=== PATIENT | female | born 1930 | race Caucasian/White ===

== ENCOUNTER 2017-09-14 15:26 | Inpatient (IN) | payer MEDICARE ==
[~2017-09-14] VITALS: Ht 170.2 cm; Wt 61.2 kg
[2017-09-14 16:00] VITALS: BP 100/56
--- NOTE | 2017-09-14 16:00 | NUR ---
[id number]: PT IS 87 YEARS OLD FEMALE WITH A HISTORY OF DEMENTIA BROUGHT BY AMBULANCE FROM [facility] FOR AGITATION. PT IS ON 5150 FOR DTO AND GD. PT HAS AGGRESSIVE BEHAVIOR, NON-COMPLAINT, PSYCHOTIC SYMPTOMS. DURING THE BNYP-MJ-AKLS ASSESSMENT, PT IS CONFUSED, DISORGANIZED, DISORIENTED, PT STATED, "I'M TOO OLD TO GET ." PT THINK THAT HER IS TRYING TO KILL HER. WHILE AT THE FACILITY PT CONTINUES TO REFUSE MEDICATIONS, SCREAMING, YELLING, VERY DISRUPTIVE. PT IS AMBULATORY, SELF-CARE, CONTINENT. PROVIDE PT'S RIGHT BOOKLET. BELONGINGS STORED AND DOCUMENTED. FAMILY PRESENT UPON ADMISSION. NOTIFIED DR. ECHEVARRIA AND DR. FELIZ. ESCORTED PT AROUND THE UNIT. PROVIDE PT'S ACTIVITIES SCHEDULE. ALL PAPERWORK AND COMPUTER DOCUMENTATION COMPLETED. WILL ENDORSE TO INCOMING NURSE TO DOUBLE CHECK ALL COMPUTER AND PAPERWORK.
[2017-09-14] MEDS ORDERED: MAGNESIUM HYDROXIDE 30 ML UDC PO PRN (16:30)
[2017-09-14] MEDS ORDERED: MAG HYDROX/AL HYDROX/SIMETH 30 ML UDC PO PRN (16:30)
[2017-09-14 16:39] VITALS: BP 100/56
[2017-09-14] MEDS ORDERED: LISI10TA5 PO (16:55)
[2017-09-14] MEDS ORDERED: RIVA1PAT3 TD (16:55)
[2017-09-14] MEDS ORDERED: TRAZ-147 PO (16:55)
[2017-09-14] MEDS ORDERED: CLON0.5T4 PO (16:55)
[2017-09-14] MEDS ORDERED: RISP0.5T20 PO (16:55)
[2017-09-14] MEDS ORDERED: ESCI5TAB PO (16:55)
[2017-09-14] MEDS ORDERED: PIMA17TA PO (16:55)
[2017-09-14 20:23] VITALS: BP 147/81
--- NOTE | 2017-09-15 02:44 | NUR ---
GPS RN NOTE: PATIENT APPEARED TO BE CONFUSED, DISORGANIZED AND LOOKING FOR HER 2 GRANDDAUGHTERS, PACING AND BACK AND FORTH TO FROM THE ROOM TO THE STATION. OFFERED MEDICATION BUT PATIENT REFUSED, EXPLAINED THE RISK AND BENEFITS X 3 ATTEMPT AND PATIENT STILL REFUSED. REALITY ORIENTATION AND REDIRECTED THE PATIENT. WILL CONTINUE TO MONITOR.
[2017-09-15] MEDS: LISINOPRIL (10MG) 10 MG TABLET PO SCH ×2 (09:00→11:07)
[2017-09-15 11:00] VITALS: BP 164/86
[2017-09-15] MEDS: LORAZEPAM 0.5 MG TABLET PO PRN ×2 (11:07→17:15)
[2017-09-15] MEDS: risperiDONE 0.25 MG TABLET PO SCH ×2 (11:07→17:16)
--- NOTE | 2017-09-15 11:07 | NUR ---
GPS RN NOTE; PT IN THE HALLWAY RESTLESS AND AGITATED ATIVAN 0.5 MG PO PRN GIVEN PER ORDER, PT REFUSED VSS LATER AGREED TO TAKE IT BP MEDS GIVEN WILL CONTINUE MONITORING
[2017-09-15 16:00] VITALS: BP 117/62
--- NOTE | 2017-09-15 18:18 | NUR ---
GPS RN NOTE; PT RESTLESS ATIVAN 0.5 MG PO PRN GIVE PER ORDER WILL CONTINUE MONITORING
--- NOTE | 2017-09-15 19:30 | NUR ---
RN NOTES RECEIVED PATIENT SITTING IN BED. AO X 1, ABLE TO MAKE NEEDS KNOW. PATIENT VERY CONFUSED; EASILY AGITATED; UNCOOPERATIVE. SAFETY REMINDERS GIVEN. PATIENT WITH POOR SAFETY AWARENESS. SITTER AT BEDSIDE. ON LOW BED WITH BILATERAL UPPER SIDE RAILS UP. CALL KENNY WITHIN EASY REACH. WILL CONTINUE TO MONITOR.
[2017-09-15 19:36] VITALS: BP 147/70
[2017-09-15 20:00] VITALS: BP 147/70
[2017-09-15] MEDS: BENZTROPINE MESYLATE (1 MG) 1 MG TABLET PO SCH (20:56)
[2017-09-15] MEDS: TEMAZEPAM 7.5 MG CAPSULE PO PRN (21:23)
[2017-09-15 21:44] LABS: ALANINE AMINOTRANSFERASE 22 U/L (12-78); ALBUMIN 3.6 g/dL (3.4-5.0); ALKALINE PHOSPHATASE 85 U/L (46-116); ASPARTATE AMINOTRANSFERASE 25 U/L (15-37); BILIRUBIN,TOTAL 0.5 mg/dL (0.2-1.0); CALCIUM, SERUM 9.3 mg/dL (8.5-10.1); CARBON DIOXIDE 24 mmol/L (21-32); CHLORIDE 104 mmol/L (98-107); CREATININE 0.8 mg/dL (0.6-1.3); GLUCOSE 96 mg/dL (74-106); POTASSIUM 3.9 mmol/L (3.5-5.1); SODIUM SERUM 139 mmol/L (136-145); UREA NITROGEN, BLOOD 14 mg/dL (7-18)
[2017-09-15 21:59] LABS: CHOLESTEROL 179 mg/dL (<200); HDL CHOLESTEROL 86 mg/dL (40-60); LDL 78 mg/dL (0-99); TRIGLYCERIDES 48 mg/dL (30-150)
[2017-09-16] MEDS: LORAZEPAM 0.5 MG TABLET PO PRN (00:28)
--- NOTE | 2017-09-16 06:00 | NUR ---
RN NOTES PATIENT ASLEEP, EASILY AROUSABLE. RESPIRATIONS EVEN. NO SIGNS OF PAIN NOTED. DUE MEDS GIVEN WITH NO ASE NOTED. NEEDS ATTENDED. KEPT CLEAN AND DRY. SAFETY PRECAUTIONS AND COMFORT MEASURES IN PLACE. WILL GIVE REPORT TO DAY SHIFT FOR CONTINUITY OF CARE.
[2017-09-16 08:00] VITALS: BP 107/70
[2017-09-16] MEDS: LISINOPRIL (10MG) 10 MG TABLET PO SCH (09:00)
[2017-09-16] MEDS: risperiDONE 0.25 MG TABLET PO SCH (09:18)
--- NOTE | 2017-09-16 11:48 | NUR ---
WOUND CARE CONSULT: PT REFUSED SKIN ASSESSMENT. PT SEEN BY PODIATRY FOR FEET. DEFER TO DPM. WILL SEE PRN. DISCUSSED SKIN PROTECTION WITH NURSING STAFF. PT IS AMBULATORY AND CONTINENT.
[2017-09-16 16:00] VITALS: BP 125/65
--- NOTE | 2017-09-16 16:01 | NUR ---
Initial Discharge Note: Patient resides in memory care unit in assisted living [facility], [place] at [facility], [address] [place] [address] / [phone]. ANAIS spoke with patient's daughter/GRACIA Garcia [phone]. Phoebe stated that she would like her mother to return there once stable. Phoebe informed SW that patient had been at memory care unit for only one day before she began to refuse food and drink. ANAIS called the facility and left a voicemail for business directMarzia. ANAIS also left a message with law office receptionist Mayelin. ANAIS provided her direct contact information. SW to follow up with MD and facilitate safe and proper discharge.
[2017-09-16] MEDS: risperiDONE 1 MG TABLET PO SCH (20:39)
[2017-09-16] MEDS: BENZTROPINE MESYLATE (1 MG) 1 MG TABLET PO SCH (20:40)
[2017-09-16 20:50] VITALS: BP 126/75
[2017-09-16] MEDS: TEMAZEPAM 7.5 MG CAPSULE PO PRN (21:26)
--- NOTE | 2017-09-16 22:26 | NUR ---
GPS RN NOTES: PATIENT UNABLE TO SLEEP. VITAL SIGNS ARE STABLE. RESTORIL 7.5MG PO GIVEN PRN ORDER, WILL CONTINUE TO MONITOR.
[2017-09-17] MEDS: LORAZEPAM 0.5 MG TABLET PO PRN (00:49)
--- NOTE | 2017-09-17 00:49 | NUR ---
GPS RN NOTES: PATIENT IS ANXIOUS AND RESTLESS, VITAL SIGNS ARE STABLE. ATIVAN 0.5MG PO GIVEN PRN ORDER WILL CONTINUE TO MONITOR [id number] FOR SAFETY AND BEHAVIOR.
[2017-09-17 08:00] VITALS: BP 121/58
[2017-09-17] MEDS ORDERED: risperiDONE 0.25 MG TABLET PO SCH (08:00)
--- NOTE | 2017-09-17 08:38 | NUR ---
GPS RN NOTE: PT REFUSED LISINOPRIL 10 MG PO DAILY OFFERED X3 PT CONTINUE REFUSING VSS VNL WILL CONTINUE MONITORING
[2017-09-17] MEDS: busPIRone 5 MG TABLET PO SCH ×2 (13:13→16:29)
[2017-09-17] MEDS: risperiDONE 0.25 MG TABLET PO SCH (13:13)
[2017-09-17] MEDS: RIVASTIGMINE TARTRATE 4.6 MG PATCH.TD24 TD SCH (13:24)
--- NOTE | 2017-09-17 14:44 | NUR ---
Discharger Planning: ANAIS called and spoke with wildlife protector Santiago at [facility], [address] [place] [address] / [phone]. ANAIS was informed that the nurse [who will have information regarding patient's ability to return] is out of the office and asked SW to call at 11am tomorrow morning. SW to follow up.
[2017-09-17 16:37] LABS: APPEARANCE,URINE SL CLOUDY (CLEAR); BILIRUBIN,URINE NEGATIVE (NEGATIVE); BLOOD, URINE NEGATIVE Ery/uL (NEGATIVE); COLOR,URINE YELLOW (YELLOW); KETONES,URINE NEGATIVE (NEGATIVE); LEUKOCYTE ESTERASE ,URINE 3+ (NEGATIVE); NITRITE, URINE POSITIVE (NEGATIVE); PH,URINE 6.5 (5.0-8.0); PROTEIN,URINE NEGATIVE (NEGATIVE); UGLUCOSE NEGATIVE (NEGATIVE); UROBILINOGEN,URINE 0.2 EU/dL (0.2)
[2017-09-17 16:43] LABS: BACTERIA,URINE Many /HPF (None Seen); RBC,URINE 0-2 /HPF (0-2); SQUAMOUS EPITHELIAL CELL,UR Few /HPF (None Seen); WBC,URINE 51-80 /HPF (0-3)
[2017-09-17 17:10] VITALS: BP 130/73
[2017-09-17] MEDS: BENZTROPINE MESYLATE (1 MG) 1 MG TABLET PO SCH (20:22)
[2017-09-17] MEDS: CEPHALEXIN MONOHYDRATE 500 MG CAPSULE PO SCH (20:22)
[2017-09-17] MEDS: risperiDONE 1 MG TABLET PO SCH (20:22)
[2017-09-17 21:11] VITALS: BP 156/84
[2017-09-17] MEDS: TEMAZEPAM 7.5 MG CAPSULE PO PRN (21:35)
[2017-09-18] MEDS: LORAZEPAM 0.5 MG TABLET PO PRN ×2 (01:18→13:09)
--- NOTE | 2017-09-18 01:18 | NUR ---
GPS RN NOTES: PATIENT VERY ANXIOUS, RESTLESS, SCREAMING AND YELLING. V/S ARE STABLE. ADMINISTERED ATIVAN 0.5MG PO ORDERED. WILL CONTINUE TO MONITOR [id number] FOR SAFETY AND BEHAVIOR.
[2017-09-18] MEDS: ACETAMINOPHEN 325 MG TABLET PO PRN (01:52)
[2017-09-18 07:13] LABS: BASOPHILS % (AUTO) 0.4 % (0.0-2.0); EOSINOPHILS # (AUTO) 0.1 /CMM (0.0-0.7); EOSINOPHILS % (AUTO) 1.6 % (0.0-6.0); HEMATOCRIT 39 % (33-45); LYMPHOCYTES # (AUTO) 1.4 /CMM (0.8-4.8); LYMPHOCYTES % (AUTO) 19.9 % (20.0-44.0); MEAN CORPUSCULAR HEMOGLOBIN 30 PG (26.0-33.0); MEAN CORPUSCULAR HGB CONC 33 g/dl (31.0-36.0); MEAN CORPUSCULAR VOLUME 91 fL (82-100); MONOCYTES # (AUTO) 0.9 /CMM (0.1-1.30); MONOCYTES % (AUTO) 11.8 % (2.0-12.0); NEUTROPHILS # (AUTO) 4.8 /CMM (1.8-8.9); NEUTROPHILS % (AUTO) 66.3 % (43.0-81.0); PLATELET COUNT (AUTO) 316 /CMM (150-450); RDW COEFFICIENT OF VARIATION 14.8 (11.5-15.0); RED BLOOD CELL COUNT(AUTO) 4.33 MIL/uL (4.0-5.2); WHITE BLOOD COUNT (AUTO) 7.3 K/uL (4.3-11.0)
[2017-09-18 08:00] VITALS: BP 125/59
[2017-09-18] MEDS: RIVASTIGMINE TARTRATE 4.6 MG PATCH.TD24 TD SCH (08:20)
[2017-09-18] MEDS: CEPHALEXIN MONOHYDRATE 500 MG CAPSULE PO SCH ×2 (08:20→20:38)
[2017-09-18] MEDS: busPIRone 5 MG TABLET PO SCH ×2 (08:20→12:36)
[2017-09-18] MEDS: risperiDONE 0.25 MG TABLET PO SCH ×2 (08:20→12:36)
[2017-09-18] MEDS: LISINOPRIL (10MG) 10 MG TABLET PO SCH (08:21)
[2017-09-18] MEDS: MEMANTINE HCL 5 MG TABLET PO SCH (09:43)
--- NOTE | 2017-09-18 11:42 | NUR ---
Discharge Planning: ANAIS spoke with nurse Ling, regarding patient's ability to return to memory care unit at [facility]. ANAIS was informed that patient is able to return, but a face to face assessment needs to be conducted first. SW to schedule assessment once patient is stable and ready for discharge. Addendum: 09/19/17 at 1123 by BRITTANY MANZO PLEASE NOTE LING IS MEMORY CARE CARPET INSTALLATION SPECIALIST
--- NOTE | 2017-09-18 13:10 | NUR ---
GPS/RN PATIENT NOTED WITH ACUTE AGITATION, YELLING, STRIKING OUT AT STAFF, NOT ABLE TO REDIRECT AT THIS TIME, [id number] ATIVAN 0.5 MG, WILL CONTINUE TO MONITOR.
[2017-09-18 16:13] VITALS: BP 114/65
[2017-09-18] MEDS: GABAPENTIN 100 MG CAPSULE PO SCH (16:52)
[2017-09-18 20:00] VITALS: BP 147/70
[2017-09-18] MEDS: BENZTROPINE MESYLATE (1 MG) 1 MG TABLET PO SCH (20:38)
[2017-09-18] MEDS: risperiDONE 1 MG TABLET PO SCH (20:38)
[2017-09-18] MEDS: TEMAZEPAM 7.5 MG CAPSULE PO PRN (20:38)
[2017-09-18] MEDS ORDERED: LORAZEPAM 0.5 MG TABLET PO PRN (22:30)
[2017-09-19 08:00] VITALS: BP 121/67
[2017-09-19] MEDS: risperiDONE 0.25 MG TABLET PO SCH ×3 (08:02→17:42)
[2017-09-19] MEDS: LISINOPRIL (10MG) 10 MG TABLET PO SCH (08:02)
[2017-09-19] MEDS: GABAPENTIN 100 MG CAPSULE PO SCH (08:02)
[2017-09-19] MEDS: MEMANTINE HCL 5 MG TABLET PO SCH (08:02)
[2017-09-19] MEDS: CEPHALEXIN MONOHYDRATE 500 MG CAPSULE PO SCH ×2 (08:02→21:08)
[2017-09-19] MEDS: RIVASTIGMINE TARTRATE 4.6 MG PATCH.TD24 TD SCH (08:02)
--- NOTE | 2017-09-19 11:22 | NUR ---
Discharge Planning: ANAIS left a voicemail for memory care director of community services Ling, . ANAIS provided her direct contact information in the voicemail. ANAIS asked Ling to assess patient on Friday.
[2017-09-19] MEDS: GABAPENTIN 300 MG CAPSULE PO SCH ×2 (12:26→17:42)
[2017-09-19] MEDS: LORAZEPAM 0.5 MG TABLET PO SCH ×2 (12:26→17:42)
[2017-09-19 16:00] VITALS: BP 149/70
[2017-09-19 20:00] VITALS: BP 105/60
[2017-09-19] MEDS: BENZTROPINE MESYLATE (1 MG) 1 MG TABLET PO SCH (21:09)
[2017-09-20 08:00] VITALS: BP 101/58
[2017-09-20] MEDS: LORAZEPAM 0.5 MG TABLET PO SCH ×4 (09:00→17:18)
[2017-09-20] MEDS: MEMANTINE HCL 5 MG TABLET PO SCH (09:02)
[2017-09-20] MEDS: CEPHALEXIN MONOHYDRATE 500 MG CAPSULE PO SCH ×2 (09:02→20:11)
[2017-09-20] MEDS: GABAPENTIN 300 MG CAPSULE PO SCH ×3 (09:02→17:18)
[2017-09-20] MEDS: risperiDONE 0.25 MG TABLET PO SCH ×3 (09:02→17:18)
[2017-09-20] MEDS: RIVASTIGMINE TARTRATE 4.6 MG PATCH.TD24 TD SCH (09:03)
[2017-09-20] MEDS: LISINOPRIL (10MG) 10 MG TABLET PO SCH (09:03)
[2017-09-20 16:00] VITALS: BP 92/50
[2017-09-20] MEDS: BENZTROPINE MESYLATE (1 MG) 1 MG TABLET PO SCH (19:49)
[2017-09-20 20:00] VITALS: BP 110/60
[2017-09-20] MEDS: TEMAZEPAM 7.5 MG CAPSULE PO PRN (23:50)
[2017-09-20] MEDS: ACETAMINOPHEN 325 MG TABLET PO PRN (23:51)
[2017-09-21 08:00] VITALS: BP 100/58
[2017-09-21] MEDS: GABAPENTIN 300 MG CAPSULE PO SCH ×3 (08:30→17:04)
[2017-09-21] MEDS: MEMANTINE HCL 5 MG TABLET PO SCH (08:30)
[2017-09-21] MEDS: CEPHALEXIN MONOHYDRATE 500 MG CAPSULE PO SCH ×2 (08:30→21:12)
[2017-09-21] MEDS: RIVASTIGMINE TARTRATE 4.6 MG PATCH.TD24 TD SCH (08:30)
[2017-09-21] MEDS: LORAZEPAM 0.5 MG TABLET PO SCH ×3 (08:31→17:04)
[2017-09-21] MEDS: LISINOPRIL (10MG) 10 MG TABLET PO SCH (08:31)
[2017-09-21] MEDS: risperiDONE 0.25 MG TABLET PO SCH ×3 (08:31→17:04)
[2017-09-21 16:00] VITALS: BP 110/76
[2017-09-21 19:52] VITALS: BP 140/77
[2017-09-21] MEDS: BENZTROPINE MESYLATE (1 MG) 1 MG TABLET PO SCH (19:52)
[2017-09-21] MEDS: TEMAZEPAM 7.5 MG CAPSULE PO PRN (21:25)
[2017-09-21] MEDS: ACETAMINOPHEN 325 MG TABLET PO PRN (22:32)
[2017-09-22] MEDS: LORAZEPAM 0.5 MG TABLET PO PRN ×2 (00:06→08:19)
--- NOTE | 2017-09-22 00:06 | NUR ---
GPS RN NOTES: PATIENT VERY ANXIOUS, RESTLESS. V/S ARE STABLE. ADMINISTERED ATIVAN 0.5MG PO ORDERED. WILL CONTINUE TO MONITOR [id number] FOR SAFETY AND BEHAVIOR.
[2017-09-22] MEDS: GABAPENTIN 300 MG CAPSULE PO SCH ×3 (08:18→17:00)
[2017-09-22] MEDS: CEPHALEXIN MONOHYDRATE 500 MG CAPSULE PO SCH ×2 (08:18→21:45)
[2017-09-22] MEDS: RIVASTIGMINE TARTRATE 4.6 MG PATCH.TD24 TD SCH (08:19)
[2017-09-22] MEDS: MEMANTINE HCL 5 MG TABLET PO SCH (08:19)
[2017-09-22] MEDS: risperiDONE 0.25 MG TABLET PO SCH ×2 (08:19→12:33)
[2017-09-22] MEDS: LISINOPRIL (10MG) 10 MG TABLET PO SCH (08:19)
--- NOTE | 2017-09-22 08:19 | NUR ---
GPS/RN PATIENT NOTED WITH ACUTE AGITATION, ANXIOUS, SCREAMING, NOT ABLE TO REDIRECT AT THIS TIME, ADMINISTERED ATIVAN 0.5 MG, WILL CONTINUE TO MONITOR.
[2017-09-22] MEDS: Z GUARD REMEDY 4 OZ OINT TP SCH ×2 (09:00→21:45)
[2017-09-22] MEDS: LORAZEPAM 0.5 MG TABLET PO SCH ×2 (09:32→12:34)
--- NOTE | 2017-09-22 11:08 | NUR ---
Discharge Planning: SW spoke with patient's daughter/POA Phoebe Garcia [phone]. Phoebe stated that she would like to speak with the patient's psychiatrist and ANAIS stated that she will inform the psychiatrist of the request. Phoebe stated that, if necessary, a SNF placement will be okay for the patient. Phoebe stated that she does not wish to make any decisions without speaking with the psychiatrist, as she wants her decisions to be well-informed. Phoebe also asked ANAIS to ask Ling, nurse at memory care unit, if crushing pills into food was something that the facility was okay with doing. SW to follow up.
--- NOTE | 2017-09-22 13:27 | NUR ---
GPS/RN SPOKE WITH YASMEEN IN PHARMACY REGARDING THE INACCURATE WASTE AMOUNT (ATIVAN 0.75 MG) IN OMNICELL. HE STATED TO DOCUMENT THE ACCURATE AMOUNT GIVEN AND WASTED - 0.25 GIVEN AND 0.25 WASTED OF ATIVAN 0.5 MG TABLET. WITNESSED BY 2ND RN.
[2017-09-22 16:00] VITALS: BP 118/90
[2017-09-22] MEDS: QUETIAPINE FUMARATE 25 MG TABLET PO SCH (17:00)
--- NOTE | 2017-09-22 17:50 | NUR ---
GPS/RN PATIENT IS AROUSABLE TO TOUCH AND NAME BUT APPEARS TO BE SOMEWHAT SEDATED, HELD 1700 GABAPENTIN 300 MG AND SEROQUEL 12.5 MG, WILL CONTINUE TO MONITOR.
[2017-09-22 19:57] VITALS: BP 111/56
[2017-09-23 08:00] VITALS: BP 102/52
[2017-09-23] MEDS: LISINOPRIL (10MG) 10 MG TABLET PO SCH (09:00)
[2017-09-23] MEDS: QUETIAPINE FUMARATE 25 MG TABLET PO SCH ×3 (09:53→17:31)
[2017-09-23] MEDS: CEPHALEXIN MONOHYDRATE 500 MG CAPSULE PO SCH ×2 (09:53→20:37)
[2017-09-23] MEDS: MEMANTINE HCL 5 MG TABLET PO SCH (09:53)
[2017-09-23] MEDS: RIVASTIGMINE TARTRATE 4.6 MG PATCH.TD24 TD SCH (09:53)
[2017-09-23] MEDS: GABAPENTIN 300 MG CAPSULE PO SCH ×3 (09:53→17:31)
[2017-09-23] MEDS: Z GUARD REMEDY 4 OZ OINT TP SCH ×2 (10:07→20:45)
--- NOTE | 2017-09-23 10:14 | NUR ---
Discharge Planning: ANAIS consulted with patient's psychiatric, who informed ANAIS that patient was not yet ready to be assessed by assisted living facility. ANAIS called and spoke with nurse / coordinator or memory care unit at assisted living facility Ling [phone]. ANAIS inquired if facility is okay with crushing medication into food. Ling stated that, as long as there is an order from the hospital, then yes. Sivan asked ANAIS to keep her updated so that she is able to assess patient as soon as possible. Ling asked ANAIS to fax updated notes and medication list to fax number [phone] or fax # [phone] Addendum: 09/24/17 at 1146 by BRITTANY MANZO ANAIS faxed progress notes and medication list to Ling, fax # [phone]
[2017-09-23 16:00] VITALS: BP 104/71
[2017-09-23] MEDS: QUETIAPINE FUMARATE 25 MG TABLET PO PRN (18:41)
--- NOTE | 2017-09-23 18:42 | NUR ---
GPS/RN PATIENT IS EXTREMELY AGITATED, IRRITABLE, ANXIOUS, SCREAMING INTERMITTENTLY, , ADMINISTERED SEROQUEL PRN PER DR FELIZ. WILL CONTINUE TO MONITOR.
[2017-09-23 20:58] VITALS: BP 133/67
[2017-09-23] MEDS: TEMAZEPAM 7.5 MG CAPSULE PO PRN (22:41)
[2017-09-23] MEDS: ACETAMINOPHEN 325 MG TABLET PO PRN (23:36)
[2017-09-24] MEDS: QUETIAPINE FUMARATE 25 MG TABLET PO PRN ×2 (00:57→11:31)
--- NOTE | 2017-09-24 00:57 | NUR ---
GPS/RN PATIENT IS ANXIOUS, AGITATED, IRRITABLE. VITAL SIGNS ARE STABLE. ADMINISTERED SEROQUEL 12.5MG PO PRN ORDER. WILL CONTINUE TO MONITOR [id number] FOR SAFETY AND BEHAVIOR.
[2017-09-24 08:00] VITALS: BP 120/71
[2017-09-24] MEDS: LISINOPRIL (10MG) 10 MG TABLET PO SCH (08:24)
[2017-09-24] MEDS: RIVASTIGMINE TARTRATE 4.6 MG PATCH.TD24 TD SCH (08:25)
[2017-09-24] MEDS: GABAPENTIN 300 MG CAPSULE PO SCH (08:25)
[2017-09-24] MEDS: CEPHALEXIN MONOHYDRATE 500 MG CAPSULE PO SCH ×2 (08:25→20:33)
[2017-09-24] MEDS: MEMANTINE HCL 5 MG TABLET PO SCH (08:25)
[2017-09-24] MEDS: QUETIAPINE FUMARATE 25 MG TABLET PO SCH ×4 (08:25→20:33)
[2017-09-24] MEDS: Z GUARD REMEDY 4 OZ OINT TP SCH ×2 (08:38→20:42)
[2017-09-24] MEDS: DIVALPROEX SODIUM 125 MG CAP.SPRINK PO SCH ×2 (11:09→20:33)
[2017-09-24 16:00] VITALS: BP 135/85
[2017-09-24 19:58] VITALS: BP 120/69
[2017-09-24] MEDS: TEMAZEPAM 7.5 MG CAPSULE PO PRN (23:52)
--- NOTE | 2017-09-24 23:52 | NUR ---
PATIENT STILL UP, TALKS TO HERSELF, YELLS AND CREAMS ON AND OFF, TEMAZEPAM 7.5 MG CAP 1 PO GIVEN.
[2017-09-25] MEDS: LORAZEPAM 0.5 MG TABLET PO PRN (03:07)
--- NOTE | 2017-09-25 03:08 | NUR ---
LORAZEPAM 0.5 MG TAB 1 PO GIVEN FOR AGITATION, PATIENT APPEARS ANXIOUS, NOT SLEEPING
[2017-09-25 08:00] VITALS: BP 118/68
[2017-09-25] MEDS: CEPHALEXIN MONOHYDRATE 500 MG CAPSULE PO SCH ×2 (08:33→20:00)
[2017-09-25] MEDS: DIVALPROEX SODIUM 125 MG CAP.SPRINK PO SCH ×3 (08:33→20:01)
[2017-09-25] MEDS: RIVASTIGMINE TARTRATE 4.6 MG PATCH.TD24 TD SCH (08:34)
[2017-09-25] MEDS: MEMANTINE HCL 5 MG TABLET PO SCH (08:34)
[2017-09-25] MEDS: LISINOPRIL (10MG) 10 MG TABLET PO SCH (08:34)
[2017-09-25] MEDS: QUETIAPINE FUMARATE 25 MG TABLET PO SCH ×4 (08:34→19:29)
[2017-09-25] MEDS: Z GUARD REMEDY 4 OZ OINT TP SCH ×2 (08:39→20:00)
--- NOTE | 2017-09-25 14:36 | NUR ---
Discharge Planning: ANAIS spoke with patient's daughter/POA Phoebe Garcia [phone]. ANAIS updated Phoebe on patient's condition. Phoebe stated that the plan is for patient to return back to the memory care unit. However, if memory care is unable to accommodate, then family will work on finding alternative placement [board and care] near their area.
--- NOTE | 2017-09-25 14:37 | NUR ---
Discharge Planning: ANAIS called memory care critical care unit nurse Ling, to arrange an assessment for tomorrow, but her voicemail box was full. ANAIS then called the main line for Janine at [facility], [address] [place] [address] / [phone] and spoke with central office equipment engineer Santiago. ANAIS was informed that Ling was busy at the moment. ANAIS left a message for Ling and provided her direct contact information.
[2017-09-25] MEDS: QUETIAPINE FUMARATE 25 MG TABLET PO PRN (14:52)
--- NOTE | 2017-09-25 15:57 | NUR ---
Discharge Planning: ANAIS left a voicemail on direct line for memory care community health specialist Ling, , to arrange assessment for tomorrow.
[2017-09-25 16:00] VITALS: BP 116/55
[2017-09-25 20:00] VITALS: BP 111/57
[2017-09-25] MEDS ORDERED: TEMAZEPAM 7.5 MG CAPSULE PO PRN (22:00)
[2017-09-26 08:00] VITALS: BP 110/48
[2017-09-26] MEDS: MEMANTINE HCL 5 MG TABLET PO SCH (08:10)
[2017-09-26] MEDS: LISINOPRIL (10MG) 10 MG TABLET PO SCH (08:10)
[2017-09-26] MEDS: CEPHALEXIN MONOHYDRATE 500 MG CAPSULE PO SCH ×2 (08:10→20:14)
[2017-09-26] MEDS: DIVALPROEX SODIUM 125 MG CAP.SPRINK PO SCH ×3 (08:10→20:14)
[2017-09-26] MEDS: Z GUARD REMEDY 4 OZ OINT TP SCH ×2 (08:11→20:55)
[2017-09-26] MEDS: QUETIAPINE FUMARATE 25 MG TABLET PO SCH ×4 (08:11→19:35)
[2017-09-26 08:35] VITALS: BP 110/58
[2017-09-26] MEDS ORDERED: TEMAZEPAM 7.5 MG CAPSULE PO PRN (09:30)
--- NOTE | 2017-09-26 09:38 | NUR ---
Discharge Planning: ANAIS left a voicemail for memory care unit control worker Ling, . SW provided her direct contact information in the voicemail and wanted to schedule assessment for patient.
--- NOTE | 2017-09-26 12:23 | NUR ---
Discharge Planning: ANAIS spoke with memory care hospital unit clerk Ling, . Ling stated that she will [place] be able [place] stated that, although Friday is her day off, she will attempt to assess the patient on that day. Ling also asked ANAIS to have doctor fill out the physician's report. ANAIS printed a copy and flagged it in patient's chart. ANAIS made Charge Nurse Jono aware of this.
[2017-09-26] MEDS ORDERED: DIVALPROEX SODIUM 125 MG CAP.SPRINK PO SCH (13:00)
[2017-09-26 16:00] VITALS: BP 101/56
[2017-09-26] MEDS: LORAZEPAM 0.5 MG TABLET PO PRN (16:12)
--- NOTE | 2017-09-26 16:20 | NUR ---
RN NOTES PT YELLING IN THE ACTIVITY ROOM, VERY IRRITATED AND TRYING TO GET OUT OF HER CHAIR. ATIVAN GIVEN ORDERED
[2017-09-26 20:00] VITALS: BP 111/64
--- NOTE | 2017-09-26 23:45 | NUR ---
TEMAZEPAM 7.5 MG CAP 1 PO GIVEN FOR SLEEP.
[2017-09-27 08:00] VITALS: BP 150/58
[2017-09-27] MEDS: MEMANTINE HCL 5 MG TABLET PO SCH (09:09)
[2017-09-27] MEDS: DIVALPROEX SODIUM 125 MG CAP.SPRINK PO SCH ×3 (09:09→21:25)
[2017-09-27] MEDS: LISINOPRIL (10MG) 10 MG TABLET PO SCH (09:09)
[2017-09-27] MEDS: QUETIAPINE FUMARATE 25 MG TABLET PO SCH ×4 (09:09→20:33)
[2017-09-27] MEDS: CEPHALEXIN MONOHYDRATE 500 MG CAPSULE PO SCH ×2 (09:10→21:24)
[2017-09-27] MEDS: Z GUARD REMEDY 4 OZ OINT TP SCH ×2 (12:20→21:25)
[2017-09-27 16:00] VITALS: BP 133/67
[2017-09-27 20:00] VITALS: BP 138/95
--- NOTE | 2017-09-28 01:41 | NUR ---
Pt has been restless, confused, disorganized, & hyperverbal. She needed multiple promptings to take her noc po meds last night.
--- NOTE | 2017-09-28 07:15 | NUR ---
PATIENT REFUSED SKIN ASSESSMENT, SHE STATED, " NO, I DON'T WANT IT."
[2017-09-28 07:22] LABS: BASOPHILS % (AUTO) 0.3 % (0.0-2.0); EOSINOPHILS # (AUTO) 0.2 /CMM (0.0-0.7); EOSINOPHILS % (AUTO) 2.7 % (0.0-6.0); HEMATOCRIT 35 % (33-45); HEMOGLOBIN 11.9 g/dL (11.5-14.8); LYMPHOCYTES # (AUTO) 1.1 /CMM (0.8-4.8); LYMPHOCYTES % (AUTO) 15.1 % (20.0-44.0); MEAN CORPUSCULAR HEMOGLOBIN 30 PG (26.0-33.0); MEAN CORPUSCULAR HGB CONC 34 g/dl (31.0-36.0); MEAN CORPUSCULAR VOLUME 90 fL (82-100); MONOCYTES # (AUTO) 0.9 /CMM (0.1-1.30); MONOCYTES % (AUTO) 12.2 % (2.0-12.0); NEUTROPHILS # (AUTO) 5.1 /CMM (1.8-8.9); NEUTROPHILS % (AUTO) 69.7 % (43.0-81.0); PLATELET COUNT (AUTO) 407 /CMM (150-450); RDW COEFFICIENT OF VARIATION 14.4 (11.5-15.0); RED BLOOD CELL COUNT(AUTO) 3.93 MIL/uL (4.0-5.2); WHITE BLOOD COUNT (AUTO) 7.3 K/uL (4.3-11.0)
[2017-09-28 07:40] LABS: ALANINE AMINOTRANSFERASE 19 U/L (12-78); ALBUMIN 2.6 g/dL (3.4-5.0); ALKALINE PHOSPHATASE 84 U/L (46-116); ASPARTATE AMINOTRANSFERASE 23 U/L (15-37); BILIRUBIN,TOTAL 0.5 mg/dL (0.2-1.0); CARBON DIOXIDE 27 mmol/L (21-32); CHLORIDE 102 mmol/L (98-107); CREATININE 0.7 mg/dL (0.6-1.3); GLUCOSE 85 mg/dL (74-106); MAGNESIUM 2.1 mg/dL (1.8-2.4); POTASSIUM 4.3 mmol/L (3.5-5.1); SODIUM SERUM 138 mmol/L (136-145); TOTAL PROTEIN, SERUM 6.6 g/dL (6.4-8.2); UREA NITROGEN, BLOOD 13 mg/dL (7-18)
[2017-09-28 08:04] LABS: VALPROIC ACID 54 ug/mL (50-100)
[2017-09-28] MEDS: DIVALPROEX SODIUM 125 MG CAP.SPRINK PO SCH ×3 (08:34→20:13)
[2017-09-28] MEDS: CEPHALEXIN MONOHYDRATE 500 MG CAPSULE PO SCH ×2 (08:34→20:13)
[2017-09-28] MEDS: MEMANTINE HCL 5 MG TABLET PO SCH (08:35)
[2017-09-28] MEDS: QUETIAPINE FUMARATE 25 MG TABLET PO SCH ×4 (08:35→19:38)
[2017-09-28] MEDS: LISINOPRIL (10MG) 10 MG TABLET PO SCH (08:35)
[2017-09-28] MEDS: Z GUARD REMEDY 4 OZ OINT TP SCH ×2 (08:35→20:12)
[2017-09-28 08:38] VITALS: BP 120/84
[2017-09-28 16:13] VITALS: BP 124/74
[2017-09-28 19:56] VITALS: BP 96/56
[2017-09-28] MEDS: TEMAZEPAM 7.5 MG CAPSULE PO PRN ×3 (20:02→22:07)
[2017-09-28] MEDS: LORAZEPAM 0.5 MG TABLET PO PRN (20:17)
--- NOTE | 2017-09-28 20:17 | NUR ---
LORAZEPAM 0.5 MG TAB 1 PO GIVEN FRO ANXIETY AT 2017.
--- NOTE | 2017-09-28 21:03 | NUR ---
210, TEMAZEPAM 7.5 MG CAP 1 PO GIVEN FOR SLEEP. WILL MONITOR Q 15 MINS FOR SAFETY AND BEHAVIOR.
--- NOTE | 2017-09-28 22:10 | NUR ---
220, Repeat temazepam 7.5 mg cap 1 po given per md's order. patient still awake.
--- NOTE | 2017-09-28 23:10 | NUR ---
PATIENT SEEN SLEEPING AT THIS TIME, RESTING IN BED, COMFORTABLE.
[2017-09-29 08:00] VITALS: BP 105/54
[2017-09-29] MEDS: QUETIAPINE FUMARATE 25 MG TABLET PO SCH ×4 (08:59→21:01)
[2017-09-29] MEDS: CEPHALEXIN MONOHYDRATE 500 MG CAPSULE PO SCH ×2 (08:59→21:18)
[2017-09-29] MEDS: MEMANTINE HCL 5 MG TABLET PO SCH (09:00)
[2017-09-29] MEDS: LISINOPRIL (10MG) 10 MG TABLET PO SCH (09:00)
[2017-09-29] MEDS: DIVALPROEX SODIUM 125 MG CAP.SPRINK PO SCH ×3 (09:00→21:18)
--- NOTE | 2017-09-29 09:00 | NUR ---
[id number]: PT REFUSED SKIN ASSESSMENT. EVEN AFTER OFFERED THREE TIMES.
[2017-09-29] MEDS: Z GUARD REMEDY 4 OZ OINT TP SCH ×2 (09:04→21:20)
--- NOTE | 2017-09-29 12:12 | NUR ---
Discharge planning: ANAIS left a voicemail for memory care critical care unit nurse Ling, . ANAIS inquired if the assessment scheduled for today is still in place. ANAIS asked Ling to give her a call back. ANAIS provided her direct contact information in the voicemail.
--- NOTE | 2017-09-29 12:50 | NUR ---
Discharge Note: ANAIS spoke with patient's daughter/POA Phoebe Garcia [phone]. Phoebe stated that she is open to SNF placement in the [place] if the memory care unit is unable to take patient. Phoebe stated that she would like the patient assessed first before that decision is made because, if patient is able to return to memory care, then that is what would be best. Phoebe asked ANAIS to email a list of accepting SNFs to email [email or web address], as a "back up plan"
--- NOTE | 2017-09-29 13:00 | NUR ---
Discharge Planning: During the conversation with patient's daughter/POA Phoebe Garcia [phone], Phoebe stated that perhaps a SNF is a better choice for her mother. Phoebe stated that her mother needs structure. ANAIS stated that it is the psychiatrist's recommendation s well. ANAIS stated that she iwll find placement for patient. Phoebe stated that she was open to facilities in the [place] and asked ANAIS to send her an email with the facilities so that she can do her research on them.
--- NOTE | 2017-09-29 14:08 | NUR ---
Discharge Planning: faxed: [place] [address] [facility], [place] / fax number [phone] [facility], [address] [place] [address] / [phone] / fax number [phone] [facility] [place] [address] [facility] [place] [address]; [phone] / fax # [phone]
[2017-09-29 16:00] VITALS: BP 108/61
--- NOTE | 2017-09-29 16:17 | NUR ---
Discharge Planning: Per Cristian in [place] [address] [facility], [place] / fax number [phone], patient is accepted. SW notified daughter/GRACIA Garcia [phone].
--- NOTE | 2017-09-29 16:20 | NUR ---
Discharge Planning: Patient was accepted to [facility], [address] [place] [address]. [place] [address] / [phone] / fax number [phone]. SW notified daughter. Daughter to tour facility tomorrow morning.
[2017-09-29 19:49] VITALS: BP 124/73
[2017-09-30] MEDS: TEMAZEPAM 7.5 MG CAPSULE PO PRN ×2 (00:51→20:58)
[2017-09-30 08:00] VITALS: BP 119/66
[2017-09-30] MEDS: CEPHALEXIN MONOHYDRATE 500 MG CAPSULE PO SCH ×2 (08:30→20:59)
[2017-09-30] MEDS: MEMANTINE HCL 5 MG TABLET PO SCH ×2 (08:30→16:40)
[2017-09-30] MEDS: QUETIAPINE FUMARATE 25 MG TABLET PO SCH ×4 (08:30→20:58)
[2017-09-30] MEDS: DIVALPROEX SODIUM 125 MG CAP.SPRINK PO SCH ×3 (08:30→20:58)
[2017-09-30] MEDS: LISINOPRIL (10MG) 10 MG TABLET PO SCH (08:30)
[2017-09-30] MEDS: Z GUARD REMEDY 4 OZ OINT TP SCH ×2 (08:34→20:58)
--- NOTE | 2017-09-30 11:13 | NUR ---
Discharge Planning: SW spoke with patient's daughter/POA Phoebe Garcia [phone] to inquire about the tour. Phoebe stated that she was unable to tour at 10:30am as scheduled because her father wanted to come and tour the facility as well. Phoebe stated that the plan is to tour today, but she is not sure when. SW explained that patient is ready for discharge and that this is a delay to the process. Phoebe became upset and stated that she feels she does not have enough time to plan the discharge. Phoebe stated that she will try to tour today and then hung up on SW.
[2017-09-30 16:11] VITALS: BP 100/54
[2017-09-30] MEDS: LORAZEPAM 0.5 MG TABLET PO PRN (19:53)
[2017-09-30 20:16] VITALS: BP 127/91
[2017-10-01 07:24] LABS: BASOPHILS % (AUTO) 0.4 % (0.0-2.0); EOSINOPHILS # (AUTO) 0.3 /CMM (0.0-0.7); EOSINOPHILS % (AUTO) 4.2 % (0.0-6.0); HEMATOCRIT 36 % (33-45); HEMOGLOBIN 12.1 g/dL (11.5-14.8); LYMPHOCYTES # (AUTO) 1.3 /CMM (0.8-4.8); LYMPHOCYTES % (AUTO) 20.6 % (20.0-44.0); MEAN CORPUSCULAR HEMOGLOBIN 30 PG (26.0-33.0); MEAN CORPUSCULAR HGB CONC 34 g/dl (31.0-36.0); MEAN CORPUSCULAR VOLUME 89 fL (82-100); MONOCYTES # (AUTO) 0.8 /CMM (0.1-1.30); MONOCYTES % (AUTO) 12.4 % (2.0-12.0); NEUTROPHILS # (AUTO) 3.9 /CMM (1.8-8.9); NEUTROPHILS % (AUTO) 62.4 % (43.0-81.0); PLATELET COUNT (AUTO) 449 /CMM (150-450); RDW COEFFICIENT OF VARIATION 14.3 (11.5-15.0); RED BLOOD CELL COUNT(AUTO) 4.02 MIL/uL (4.0-5.2); WHITE BLOOD COUNT (AUTO) 6.3 K/uL (4.3-11.0)
[2017-10-01 07:27] LABS: VALPROIC ACID 53 ug/mL (50-100)
[2017-10-01 07:39] LABS: ALBUMIN 2.7 g/dL (3.4-5.0); CALCIUM, SERUM 8.8 mg/dL (8.5-10.1); CARBON DIOXIDE 28 mmol/L (21-32); CHLORIDE 102 mmol/L (98-107); CREATININE 0.8 mg/dL (0.6-1.3); GLUCOSE 82 mg/dL (74-106); POTASSIUM 4.4 mmol/L (3.5-5.1); SODIUM SERUM 138 mmol/L (136-145); UREA NITROGEN, BLOOD 13 mg/dL (7-18)
[2017-10-01 07:53] LABS: ALANINE AMINOTRANSFERASE 19 U/L (12-78); ALKALINE PHOSPHATASE 90 U/L (46-116); ASPARTATE AMINOTRANSFERASE 22 U/L (15-37); BILIRUBIN,TOTAL 0.4 mg/dL (0.2-1.0); TOTAL PROTEIN, SERUM 6.5 g/dL (6.4-8.2)
[2017-10-01 08:00] VITALS: BP 107/53
[2017-10-01] MEDS: DIVALPROEX SODIUM 125 MG CAP.SPRINK PO SCH (08:49)
[2017-10-01 08:50] VITALS: BP 107/53
[2017-10-01] MEDS: CEPHALEXIN MONOHYDRATE 500 MG CAPSULE PO SCH (08:50)
[2017-10-01] MEDS: QUETIAPINE FUMARATE 25 MG TABLET PO SCH (08:50)
[2017-10-01] MEDS: MEMANTINE HCL 5 MG TABLET PO SCH (08:50)
[2017-10-01] MEDS: LISINOPRIL (10MG) 10 MG TABLET PO SCH (08:50)
[2017-10-01] MEDS: Z GUARD REMEDY 4 OZ OINT TP SCH (08:54)
--- NOTE | 2017-10-01 09:26 | NUR ---
Discharge Planning: ANAIS called and spoke with patient's daughter/POA Phoebe Garcia [phone]. Phoebe stated that she and her father toured the [facility] and [facility]. Phoebe stated that they both decided on [facility] as the facility for the patient. Phoebe stated that she appreciated SW's help. ANAIS stated that she will inform the facility to call family once patient is transferred. ANAIS let Cristian, rn mds coordinator, know to call family.
--- NOTE | 2017-10-01 10:01 | NUR ---
Discharge Note: Patient will be discharged to [facility] [address] [facility] / fax number [phone] via ambulance transportation arranged by via [employer], trip #[id number]. Patients daughter/POPeg Garcia [phone] is aware and in agreement with the discharge plan. Patient understands that she is going to a facility and agrees to go. Upon discharge, patient is calm and cooperative. Patient denies suicidal and homicidal ideation. Patient denies visual and auditory hallucinations. At the facility, patient will be under the continued care of psychiatrist, Dr. Caba [address], [place] [address] [phone]. Patient will also be seen by undercutter Dr. Bartlett [address] [facility] [address], [place] [address] [phone].
--- NOTE | 2017-10-01 11:12 | NUR ---
GPS DISCHARGE NOTE: PT DISCHARGE TO [place] [address] [facility] [phone] VIA AMBULANCE. PT IN STABLE CONDITION VSS BP 114/59 P71 T 98.3 02 98. PT AMBULATORY WITH WALKER, COMPLIANT WITH MEDICATIONS AND TX, COOPERATIVE NOS S/S DISTRESS NOTED, PT DENIES SI/HI DENIES C/O PAIN OF DISCOMFORT. EXIT CARE DONE PRINTED PT REFUSED TO SIGN DISCHARGE PAPERS, PT A/O X1-2 CONFUSED , REFUSED SKIN ASSESSMENT.DR FELIZ ORDER DC HOLD WITH FOLLOW UP IN THE FACILITY, DR YASMEEN NYE NOTIFIED TO CONTINUE WITH MEDICATIONS DC KEFLEX. ALL BELONGINGS RETURNED TO PATIENT DAUGHTER NOTIFIED.
== END 2017-10-01 11:05 | DRG 885 ==
LOC: GPS 15:26
PROVIDERS: ADMIT Psychiatry & Neurology Psychosomatic Medicine; ATTEND Psychiatry & Neurology Psychosomatic Medicine
DX: F29 Unspecified psychosis not due to a substance or known physiological condition (principal); F02.81 Dementia in other diseases classified elsewhere, unspecified severity, with behavioral disturbance; G93.41 Metabolic encephalopathy; B96.1 Klebsiella pneumoniae [K. pneumoniae] as the cause of diseases classified elsewhere; Z91.14 Patient's other noncompliance with medication regimen; F03.91 Unspecified dementia, unspecified severity, with behavioral disturbance; N39.0 Urinary tract infection, site not specified; G31.83 Neurocognitive disorder with Lewy bodies; F32.9 Major depressive disorder, single episode, unspecified; F41.9 Anxiety disorder, unspecified; I10 Essential (primary) hypertension; Z79.899 Other long term (current) drug therapy; Z73.6 Limitation of activities due to disability; L57.0 Actinic keratosis
CPT/HCPCS: 36415; 80053-TC; 80061-TC; 80164-TC; 81000-TC; 83735-TC; 85025-TC; 87081-TC; 87086-TC; 87186-TC; 97116-TC; 97530-TC; A6402; A6403